=== PATIENT | male | born 1985 | race Caucasian/White ===

== ENCOUNTER 2021-09-19 10:00 | Emergency (ER) | payer BC ==
[2021-09-19 10:37] LABS: ESTIMATED GFR 101 mL/min (>60)
== END 2021-09-19 11:16 | disposition home or self-care (01) ==
LOC: FB.ED 10:00
DX: U07.1 COVID-19 (principal); R07.89 Other chest pain
CPT/HCPCS: 36415; 80053; 83880; 84484; 85025; 85379; 93005; 99285

== ENCOUNTER 2024-11-21 03:50 | Emergency (ER) | payer BC | END 2024-11-21 04:13 | disposition home or self-care (01) | LOC: FB.ED 03:50 | DX: F10.90 Alcohol use, unspecified, uncomplicated (principal); Y90.9 Presence of alcohol in blood, level not specified | CPT/HCPCS: 99284 ==